=== PATIENT | female | born 1955 | race Caucasian/White ===

== ENCOUNTER 2020-11-10 13:52 | Outpatient (REF) | payer OTHER, SELFPAY ==
--- NOTE | 2020-11-10 14:04 | XR_ITS ---
EXAMINATION: CHEST 2 VIEWS CLINICAL INFORMATION: Chronic cough. COMPARISON: None. TECHNIQUE: PA and lateral views of the chest were obtained. FINDINGS: The cardiac silhouette is not enlarged. The mediastinal and hilar contours are unremarkable. There are no pneumothoraces. There is blunting of the posterior left costophrenic angle. There are no consolidations. The osseous structures are unremarkable. XR/XR chest 2V IMPRESSION: No consolidations. Blunting of the posterior left costophrenic angle which could correspond to chronic pleural thickening or a trace left pleural effusion.
== END 2020-11-10 13:53 | disposition home or self-care (01) ==
LOC: HO.XRAY 13:52
PROVIDERS: PCP Internal Medicine; Visit Provider Otolaryngology
DX: R05 Cough (principal); R06.2 Wheezing
CPT/HCPCS: 71046